=== PATIENT | male | born 1940 | race African-American/Black ===

== ENCOUNTER 2020-01-16 17:50 | Observation (INO) | payer MEDICARE, OTHER ==
[~2020-01-16] VITALS: Ht 177.8 cm; Wt 78.6 kg
[~2020-01-16 17:50] MED LIST: ASPIR-LOW81 MG ORAL; ATENOLOL25 MG ORAL; ATORVASTATIN CA20 MG ORAL; NORCO 5-325 TA1 EACH ORAL; NORVASC5 MG ORAL; OMEPRAZOLE20 M2 ORAL; PROSCAR5 MG ORAL; QVAR7.3 G2 IH; TAMSULOSIN HCL0.4 MG ORAL; UNOBMED
[2020-01-16 18:00] VITALS: BP 137/76
--- NOTE | 2020-01-16 18:00 | NUR ---
ED Nurse Note: Pt brought in by ambulance from home c/o left sided chest pain and upper abd pain. Per EMS, pt said when they arrived, pt reported no pain. Respirations even and unlabored on room air. Vitals stable as documented. A+Ox4, speaking in full sentences, calm and cooperative. Pt placed on montior
[2020-01-16] MEDS ORDERED: Aspirin Baby 81mg ORAL ONE (18:15)
--- NOTE | 2020-01-16 18:21 | NUR ---
ED Nurse Note: blood sent to lab
[2020-01-16 18:47] LABS: EOSINOPHILS % (AUTO) 2.6 % (0.0-3.0); HEMATOCRIT 36.6 % (42.0-52.0); HEMOGLOBIN 11.7 G/DL (14.2-18.0); LYMPHOCYTES % (AUTO) 26.9 % (20.0-45.0); MEAN CORPUSCULAR VOLUME 104 FL (80-99); MONOCYTES % (AUTO) 8.8 % (1.0-10.0); NEUTROPHILS % (AUTO) 60.7 % (45.0-75.0); PLATELET COUNT 222 K/UL (150-450); RED BLOOD COUNT 3.51 M/UL (4.70-6.10); RED CELL DISTRIBUTION WIDTH 12.4 % (11.6-14.8); WHITE BLOOD COUNT 7.4 K/UL (4.8-10.8)
--- NOTE | 2020-01-16 18:59 | NUR ---
HAND-OFF: Report given to GELA Walker. Pt in stable condition; plan of care endorsed.
[2020-01-16 19:00] VITALS: BP 137/64
[2020-01-16 19:00] LABS: ANION GAP 9 mmol/L (5-15); BLOOD UREA NITROGEN 22 mg/dL (7-18); CALCIUM 9.8 MG/DL (8.5-10.1); CARBON DIOXIDE 27 MMOL/L (21-32); CHLORIDE 104 MMOL/L (98-107); CREATININE 1.3 MG/DL (0.55-1.30); POTASSIUM 3.9 MMOL/L (3.5-5.1); SODIUM 140 MMOL/L (136-145)
--- NOTE | 2020-01-16 19:00 | NUR ---
ED Nurse Note: Report received from GELA Ferguson. Patient is aaox4, resting in bed with safety measures in place. Patient states he does not have chest pain at this time. Vital signs are stable; will continue to monitor.
[2020-01-16 19:04] LABS: ALANINE AMINOTRANSFERASE 16 U/L (12-78); ALBUMIN 3.7 G/DL (3.4-5.0); ALBUMIN/GLOBULIN RATIO 0.9 (1.0-2.7); ALKALINE PHOSPHATASE 78 U/L (46-116); ASPARTATE AMINO TRANSFERASE 13 U/L (15-37); BILIRUBIN,TOTAL 0.6 MG/DL (0.2-1.0)
--- NOTE | 2020-01-16 19:19 | NUR ---
emergency contact: Daughter Simran Contreras [phone]
--- NOTE | 2020-01-16 19:43 | Emergency Room Report ---
History of Present Illness General Chief Complaint: Chest Pain Source: Patient Present Illness HPI This patient states that for the past 24 hours he has had intermittent left- sided chest pain. He states that prior to this he had had right-sided chest pain intermittently but never left-sided chest pain. He denies recent illness. Denies cough or congestion. Denies fever chills. He denies nausea or vomiting. Denies headache or neck pain. He states that the pain comes and goes and is sharp. He does not associate the symptoms with exercise. Has no other complaints. Allergies: Coded Allergies: No Known Allergies (Unverified , 02/26/13) COVID-19 Screening Contact w/high risk pt: No Experienced COVID-19 symptoms?: No COVID-19 Testing performed HISTOLOGIST TECHNOLOGIST: No Patient History Past Medical History: see triage record, HTN, COPD, GERD, dementia, other - HLP , BPH Social History: Denies: smoking, alcohol use, drug use Reviewed Nursing Documentation: PMH: Agreed; PSxH: Agreed Nursing Documentation-PMH Past Medical History: No History, Except For Hx Cardiac Problems: Yes Hx Hypertension: Yes Hx COPD: Yes - emphysema Hx Cancer: No Hx Gastrointestinal Problems: Yes - gallstones Hx Neurological Problems: Yes Hx Tremors: Yes Hx Vertigo: Yes Hx Dizziness: Yes Hx Syncope: Yes Hx Headaches: Yes Hx Weakness: Yes Hx Fatigue: Yes Review of Systems All Other Systems: negative except mentioned in HPI Physical Exam Vital Signs Date Time Temp Pulse Resp B/P (MAP) Pulse Ox O2 Delivery O2 Flow Rate FiO2 01/16/20 17:51 98.1 63 18 133/68 (89) 99 Room Air Sp02 EP Interpretation: reviewed, normal General Appearance: no apparent distress, alert, GCS 15, non-toxic Head: normocephalic, atraumatic Eyes: bilateral eye normal inspection, bilateral eye PERRL ENT: hearing grossly normal, normal pharynx, no angioedema, normal voice Neck: full range of motion, supple/symm/no masses Respiratory: chest non-tender, lungs clear, normal breath sounds, no respiratory distress, no retraction, no accessory muscle use, speaking full sentences Cardiovascular #1: regular rate, rhythm, no edema Gastrointestinal: normal bowel sounds, non tender, soft, non-distended, no guarding, no rebound Rectal: deferred Musculoskeletal: back normal, normal range of motion, gait/station normal, non- tender Neurologic: alert, motor strength/tone normal, oriented x3, sensory intact, responsive, speech normal Psychiatric: judgement/insight normal, memory normal, mood/affect normal, no suicidal/homicidal ideation Skin: no rash, normal color Medical Decision Making Diagnostic Impression: Primary Impression: Chest pain ER Course This patient presents with chest pain. Initial work-up for the NC is negative. This includes troponin, EKG and chest x-ray. However, given the patient's age and medical history to include hyperlipidemia and hypertension in the setting of stuttering chest pain, the patient is high risk for unstable angina. The patient did remain chest pain-free here in the emergency department during his ED course. He was given aspirin orally. He is admitted for further evaluation and treatment by cardiology. This patient was evaluated in the context of the global COVID-19 pandemic, which necessitated consideration that the patient might be at risk for infection with the [id number] virus that causes COVID-19. Institutional protocols and algorithms that pertain to the evaluation of patients at risk for COVID-19 and the state of rapid change based on information released by multiple regulatory bodies including the CDC and federal and state organizations. These policies and algorithms were followed during the patient' s care in the ED. Laboratory Tests Test 01/16/20 18:15 White Blood Count 7.4 K/UL (4.8-10.8) Red Blood Count 3.51 M/UL (4.70-6.10) L Hemoglobin 11.7 G/DL (14.2-18.0) L Hematocrit 36.6 % (42.0-52.0) L Mean Corpuscular Volume 104 FL (80-99) H Mean Corpuscular Hemoglobin 33.3 PG (27.0-31.0) H Mean Corpuscular Hemoglobin Concent 32.0 G/DL (32.0-36.0) Red Cell Distribution Width 12.4 % (11.6-14.8) Platelet Count 222 K/UL (150-450) Mean Platelet Volume 6.8 FL (6.5-10.1) Neutrophils (%) (Auto) 60.7 % (45.0-75.0) Lymphocytes (%) (Auto) 26.9 % (20.0-45.0) Monocytes (%) (Auto) 8.8 % (1.0-10.0) Eosinophils (%) (Auto) 2.6 % (0.0-3.0) Basophils (%) (Auto) 1.0 % (0.0-2.0) Sodium Level 140 MMOL/L (136-145) Potassium Level 3.9 MMOL/L (3.5-5.1) Chloride Level 104 MMOL/L (98-107) Carbon Dioxide Level 27 MMOL/L (21-32) Anion Gap 9 mmol/L (5-15) Blood Urea Nitrogen 22 mg/dL (7-18) H Creatinine 1.3 MG/DL (0.55-1.30) Estimated Glomerular Filtration Rate > 60 mL/min (>60) Glucose Level 95 MG/DL (74-106) Calcium Level 9.8 MG/DL (8.5-10.1) Total Bilirubin 0.6 MG/DL (0.2-1.0) Aspartate Amino Transferase (AST) 13 U/L (15-37) L Alanine Aminotransferase (ALT) 16 U/L (12-78) Alkaline Phosphatase 78 U/L (46-116) Troponin I 0.006 ng/mL (0.000-0.056) Total Protein 7.6 G/DL (6.4-8.2) Albumin 3.7 G/DL (3.4-5.0) Globulin 3.9 g/dL Albumin/Globulin Ratio 0.9 (1.0-2.7) L EKG Diagnostic Results Rate: normal Rhythm: NSR ST Segments: no acute changes Rhythm Strip Diag. Results EP Interpretation: yes Rate: 60's Rhythm: NSR, no PVC's, no ectopy Chest X-Ray Diagnostic Results Chest X-Ray Diagnostic Results : Chest X-Ray Ordered: Yes # of Views/Limited/Complete: 1 View Indication: Chest Pain EP Interpretation: Yes Interpretation: no consolidation, no effusion, no pneumothorax, no acute cardiopulmonary disease Impression: No acute disease Electronically Signed by: Lani Hammonds DO Last Vital Signs Date Time Temp Pulse Resp B/P (MAP) Pulse Ox O2 Delivery O2 Flow Rate FiO2 01/16/20 19:00 98.2 60 16 137/64 100 Room Air Status: improved Disposition: ADMITTED INPATIENT Condition: Serious Referrals: NON PHYSICIAN (PCP) Lani Hammonds DO Jan 16, 2020 19:43
[2020-01-16] MEDS ORDERED: DONEPEZIL HCL5 M2 ORAL (20:00)
[2020-01-16] MEDS ORDERED: NAMENDA10 MG ORAL (20:00)
[2020-01-16] MEDS ORDERED: MYSOLINE50 M1 PO (20:00)
[2020-01-16] MEDS ORDERED: METOPROLOL SUCC25 MG ORAL (20:00)
[2020-01-16] MEDS ORDERED: CATAPRES0.1 MG ORAL (20:00)
--- NOTE | 2020-01-16 20:30 | NUR ---
ED Nurse Note: Patient ambulated to restroom with steady gait and minimal assistance. Patient is awake and alert, has no complaints at this time. Patient is breathing normal and unlabored. Will continue to monitor.
--- NOTE | 2020-01-16 21:40 | NUR ---
ED Nurse Note: Report given to GELA Rousseau.
[2020-01-16 21:50] VITALS: BP 141/69
[2020-01-16] MEDS ORDERED: Nitroglycerin Subl 0.4mg tab SL PRN (22:00)
--- NOTE | 2020-01-16 22:00 | NUR ---
ED Nurse Note: Patient is stable for transfer to tele unit at this time per ERMD. Patient is awake and alert, no respiratory distress noted. Patients vital signs are stable. Pt denies any chest pain currently. Pt taken to unit by RN, connected to cured meats supervisor via gurney. Pt IV is patent and intact and he took all belongings with him. Transferred to tele bed without complication.
--- NOTE | 2020-01-16 23:00 | NUR ---
NURSE NOTES: Patient received from Denise REN. Transported via gurney and patient was able to ambulate to bed. Vital signs stable Temp 98.2, BP, 137/64, RR 16, HR 65, O2 Sat @ 100% on RA. Patient in stable condition. laboratory monitor in place. IV site on Right AC 18G. No s/s of distress and no c/o chest pain. Bed is low and locked. [place] given to patient per request. Bed low and locked. Bedside table and call light within reach. MD called for orders answered and carried out. Will continue plan of care.
[2020-01-17] VITALS: BP 137/64
[2020-01-17] MEDS ORDERED: Lexiscan 0.4mg/5ml syringe IV ONE (02:30)
[2020-01-17 03:09] LABS: BASOPHILS % (AUTO) 1.6 % (0.0-2.0); EOSINOPHILS % (AUTO) 2.6 % (0.0-3.0); HEMATOCRIT 33.4 % (42.0-52.0); HEMOGLOBIN 11.2 G/DL (14.2-18.0); LYMPHOCYTES % (AUTO) 31.6 % (20.0-45.0); MEAN CORPUSCULAR VOLUME 101 FL (80-99); MONOCYTES % (AUTO) 6.6 % (1.0-10.0); NEUTROPHILS % (AUTO) 57.7 % (45.0-75.0); PLATELET COUNT 199 K/UL (150-450); RED BLOOD COUNT 3.33 M/UL (4.70-6.10); RED CELL DISTRIBUTION WIDTH 11.3 % (11.6-14.8); WHITE BLOOD COUNT 6.4 K/UL (4.8-10.8)
[2020-01-17 03:30] LABS: ANION GAP 8 mmol/L (5-15); BLOOD UREA NITROGEN 19 mg/dL (7-18); CALCIUM 9.4 MG/DL (8.5-10.1); CARBON DIOXIDE 28 MMOL/L (21-32); CHLORIDE 106 MMOL/L (98-107); CREATININE 1.1 MG/DL (0.55-1.30); PHOSPHORUS 2.9 MG/DL (2.5-4.9); POTASSIUM 3.7 MMOL/L (3.5-5.1); SODIUM 142 MMOL/L (136-145)
[2020-01-17 03:31] LABS: CHOLESTEROL 104 MG/DL (< 200); HDL CHOLESTEROL 32 MG/DL (40-60); TRIGLYCERIDES 79 MG/DL (30-150)
[2020-01-17 04:00] VITALS: BP 126/55
--- NOTE | 2020-01-17 07:31 | NUR ---
NURSE HAND-OFF REPORT: Important Events on Shift:[Admission] Patient Status: [Stab;e] Diet: [NPO] Pending Orders: [] Pending Results/Labs:[] Pending MD notification:[] Latest Vital Signs: Temperature 96.3 , Pulse 53 , B/P 126 /55 , Respiratory Rate 18 , O2 SAT 97 , Room Air, O2 Flow Rate . Vital Sign Comment: [] EKG Rhythm: Sinus Bradycardia Rhythm change?: N MD Notified?: N - MD Response: Latest Christian Fall Score: 35 Fall Risk: Medium Risk Safety Measures: Call light Within Reach, Bed Alarm Zone 1, Side Rails Side Rails x3, Bed position Low and Locked. Fall Precautions: Yellow Socks Yellow Gown Door Sign Patient Fall Education Report given to [Dariana REN].
[2020-01-17 08:00] VITALS: BP 147/72
--- NOTE | 2020-01-17 08:31 | NUR ---
NURSE NOTES: Received report from GELA Rousseau. Pt awake, A/O x4, able to make needs known, denies any pain. Breathing even and unlabored in RA, no s/sx of acute distress. IV site on R AC patent and asymptomatic. Bed on lowest position, call light within reach. Will continue plan of care.
[2020-01-17] MEDS ORDERED: Memantine 10mg tab ORAL SCH (09:00)
[2020-01-17] MEDS ORDERED: Aspirin Baby 81mg ORAL SCH (09:00)
[2020-01-17] MEDS: Metoprolol Succinate XL 25mg tab ORAL SCH ×2 (09:00→09:26)
[2020-01-17] MEDS ORDERED: Donepezil 5mg Tab ORAL SCH (09:00)
[2020-01-17 12:00] VITALS: BP 134/61
--- NOTE | 2020-01-17 12:14 | Diagnostic Imaging Report ---
Indications: Chest pain Technique: IV administration 5.4 mCi 99m technetium macroaggregated albumin. Images obtained over the lungs in multiple projections. Previous, patient inhaled 41 mCi aerosolized 99M technetium DTPA. Images obtained over the lungs in multiple projections Comparison: Chest radiograph 01/16/2020 Findings: Perfusion tracer distribution is slightly heterogeneous, but there are no segmental or subsegmental perfusion defects. No evidence of perfusion aerosol mismatch. Impression: Findings are deemed low probability for pulmonary embolus
--- NOTE | 2020-01-17 12:21 | Cardiology Progress Note ---
Subjective No Cp since before he got to ER. CP was sharp and transient. Troponins negative x3. 2D Echo reveals normal LVEF with no pulmonary hypertension or significant valve pathology. Monitor: sinus with short episodes of sinus bradycardia in 50's Objective Last 24 Hour Vital Signs Date Time Temp Pulse Resp B/P (MAP) Pulse Ox O2 Delivery O2 Flow Rate FiO2 01/17/20 09:26 147/72 01/17/20 09:00 Room Air 01/17/20 09:00 59 147/72 01/17/20 09:00 59 147/72 01/17/20 08:00 97.5 59 20 147/72 (97) 98 01/17/20 07:29 55 01/17/20 04:00 96.3 53 18 126/55 (78) 97 01/17/20 04:00 54 01/17/20 00:00 65 01/17/20 00:00 98.2 65 18 137/64 (88) 100 01/16/20 22:38 Room Air 01/16/20 22:32 Room Air 01/16/20 21:50 98.2 57 17 141/69 100 Room Air 01/16/20 21:30 98.6 61 17 139/71 100 Room Air 01/16/20 19:00 98.2 60 16 137/64 100 Room Air 01/16/20 18:00 68 18 Room Air 01/16/20 18:00 98.3 70 18 137/76 100 Room Air 01/16/20 17:51 98.1 63 18 133/68 (89) 99 Room Air RHYTHM: NSR, SB LUNGS: lungs clear bilaterally, diminished breath sounds CARDIAC: normal rate, regular rhythm, normal S1 and S2, bradycardia ABDOMEN: normal bowel sounds, non tender, soft EXTREMITIES: normal range of motion, No edema Laboratory Tests Test 01/16/20 18:15 01/17/20 03:02 01/17/20 09:15 White Blood Count 7.4 K/UL (4.8-10.8) 6.4 K/UL (4.8-10.8) Red Blood Count 3.51 M/UL (4.70-6.10) L 3.33 M/UL (4.70-6.10) L Hemoglobin 11.7 G/DL (14.2-18.0) L 11.2 G/DL (14.2-18.0) L Hematocrit 36.6 % (42.0-52.0) L 33.4 % (42.0-52.0) L Mean Corpuscular Volume 104 FL (80-99) H 101 FL (80-99) H Mean Corpuscular Hemoglobin 33.3 PG (27.0-31.0) H 33.6 PG (27.0-31.0) H Mean Corpuscular Hemoglobin Concent 32.0 G/DL (32.0-36.0) 33.5 G/DL (32.0-36.0) Red Cell Distribution Width 12.4 % (11.6-14.8) 11.3 % (11.6-14.8) L Platelet Count 222 K/UL (150-450) 199 K/UL (150-450) Mean Platelet Volume 6.8 FL (6.5-10.1) 6.0 FL (6.5-10.1) L Neutrophils (%) (Auto) 60.7 % (45.0-75.0) 57.7 % (45.0-75.0) Lymphocytes (%) (Auto) 26.9 % (20.0-45.0) 31.6 % (20.0-45.0) Monocytes (%) (Auto) 8.8 % (1.0-10.0) 6.6 % (1.0-10.0) Eosinophils (%) (Auto) 2.6 % (0.0-3.0) 2.6 % (0.0-3.0) Basophils (%) (Auto) 1.0 % (0.0-2.0) 1.6 % (0.0-2.0) Sodium Level 140 MMOL/L (136-145) 142 MMOL/L (136-145) Potassium Level 3.9 MMOL/L (3.5-5.1) 3.7 MMOL/L (3.5-5.1) Chloride Level 104 MMOL/L (98-107) 106 MMOL/L (98-107) Carbon Dioxide Level 27 MMOL/L (21-32) 28 MMOL/L (21-32) Anion Gap 9 mmol/L (5-15) 8 mmol/L (5-15) Blood Urea Nitrogen 22 mg/dL (7-18) H 19 mg/dL (7-18) H Creatinine 1.3 MG/DL (0.55-1.30) 1.1 MG/DL (0.55-1.30) Estimat Glomerular Filtration Rate > 60 mL/min (>60) > 60 mL/min (>60) Glucose Level 95 MG/DL (74-106) 139 MG/DL (74-106) H Calcium Level 9.8 MG/DL (8.5-10.1) 9.4 MG/DL (8.5-10.1) Total Bilirubin 0.6 MG/DL (0.2-1.0) Aspartate Amino Transf (AST/SGOT) 13 U/L (15-37) L Alanine Aminotransferase (ALT/SGPT) 16 U/L (12-78) Alkaline Phosphatase 78 U/L (46-116) Troponin I 0.006 ng/mL (0.000-0.056) 0.000 ng/mL (0.000-0.056) 0.000 ng/mL (0.000-0.056) Total Protein 7.6 G/DL (6.4-8.2) Albumin 3.7 G/DL (3.4-5.0) Globulin 3.9 g/dL Albumin/Globulin Ratio 0.9 (1.0-2.7) L Phosphorus Level 2.9 MG/DL (2.5-4.9) Magnesium Level 2.0 MG/DL (1.8-2.4) Triglycerides Level 79 MG/DL (30-150) Cholesterol Level 104 MG/DL (< 200) LDL Cholesterol 64 mg/dL (<100) HDL Cholesterol 32 MG/DL (40-60) L Cholesterol/HDL Ratio 3.3 (3.3-4.4) Microbiology Date/Time Source Procedure Growth Status 01/16/20 21:20 Nasopharynx SARS-CoV-2 RdRp Gene Assay - Final Complete Assessment/Plan Assessment/Plan Non cardiac chest pain, likely musculoskeletal. COPD Hypertension No pulmonary hypertension Transient sinus bradycardia of no clinical significance, likely due to meds ( metoprolol and clonidine) Meds reviewed - metoprolol discont'd. No additional cardiac work up presently planned Outpatient follow up Dat Huddleston MD Jan 17, 2020 12:21
--- NOTE | 2020-01-17 12:41 | NUR ---
CASE MANAGEMENT: INITIAL REVIEW 79 YO M BIBA FROM HOME CC: CP past 24 hours he has had intermittent left-sided chest pain PMHx: HTN SI:CP R/O ACS T 98.1 HR 63 RR 18 B/P 133/68 SATS 99% ON RA LABS: BUN 22 AST 13 IS: ASA PO X1 EKG Diagnostic Results Rate: normal Rhythm: NSR ST Segments: no acute changes CXR Impression: No acute disease PATIENT ADMITTED TO TELE 01/16/2020 @ 2042 DCP: HOME CONCURRENT REVIEW FOR 01/17/2020 SI:CP R/O ACS VS: T 98.2 HR 59 RR 18 B/P 134/61 SATS 96% ON RA LABS: BUN 19 TROPONIN (-) X3 IS;LIPITOR PO QHS ASA PO QD NORVASC PO QD NAMENDA PO QD 2D Echo reveals normal LVEF with no pulmonary hypertension or significant valve pathology. NM VQ Scan w/ Lung Perfusion Impression: Findings are deemed low probability for pulmonary embolus TELE DCP: HOME PLAN OF CARE: PER CARDIO >> No additional cardiac work up presently planned
--- NOTE | 2020-01-17 12:53 | NUR ---
INSURANCE PER B/AR INFO... CALL REF#[id number] CALLED [facility] CERT [phone] SPOKE TO: [facility] FAXED TO [facility] TO [phone]
--- NOTE | 2020-01-17 13:44 | Diagnostic Imaging Report ---
Indication: Chest pain Technique: One view of the chest Comparison: 02/26/2013 Findings: The heart is borderline enlarged. The lungs and pleural spaces are clear. Impression: No acute process
[2020-01-17 16:00] VITALS: BP 127/63
--- NOTE | 2020-01-17 17:04 | NUR ---
NURSE NOTES: Pt left the unit in stable condition, picked up by a family member (sister, next of kin). Explained DC instructions to patient and NOK, verbalized understanding. Tele monitor, ID band, and IV removed, no bleeding noted. Belongings checked. Mask provided upon DC. Pt signed the Release of Information form, per request of pt's daughter to get all info/results while pt is admitted to the hospital. Paperwork dropped off to release of information office.
[2020-01-17] MEDS ORDERED: Atorvastatin 80mg tab ORAL SCH (21:00)
[2020-01-17] MEDS ORDERED: Tamsulosin 0.4mg cap ORAL SCH (21:00)
--- NOTE | 2020-01-17 22:30 | History and Physical Report ---
DATE OF ADMISSION: 01/16/2020 This is an 79-year-old male who came to the hospital with left-sided chest pain. He has had right-sided chest pain before he came to the hospital and was worked up. He underwent complete workup including echo and V/Q scan and overnight these tests have been resulted and are currently normal. The patient has been seen by Cardiology. His pain has resolved. He has had serial troponins that are negative and currently he states he is feeling well. PAST HISTORY: COPD, cholelithiasis, history of tremors and vertigo, history of headaches and generalized weakness. He has dementia mild, hyperlipidemia, and BPH. LIST OF HOME MEDICATIONS: Reviewed, reconciled in chart. REVIEW OF SYSTEMS: Denies any headaches, melena, or hematemesis. PHYSICAL EXAMINATION: GENERAL: An 79-year-old male. HEENT: Unremarkable. LUNGS: Clear breath sounds bilaterally. ABDOMEN: Soft. unremarkable. VITAL SIGNS: Blood pressure is 130/60, heart rate 84, respirations 18, . IMPRESSION: 1. Atypical chest pain, now resolved. 2. Negative V/Q scan. 3. Seen here by Cardiology. 4. COPD. DISCUSSION: At this time, the patient is doing well. He has been observed overnight. At this time, I will discharge him and have him follow up as an outpatient with his primary care physician. Preet Dominguez M.D. DR: HUA JOB#: [id number] CC:
--- NOTE | 2020-01-18 02:45 | Consultation ---
DATE OF CONSULTATION: 01/16/2020 CARDIOLOGY CONSULTATION CONSULTING PHYSICIAN: Dat Huddleston MD. REFERRING PHYSICIAN: Preet Dominguez MD. REASON FOR CONSULTATION: Chest pain. HISTORY OF PRESENT ILLNESS: This 79-year-old male presented to the emergency room with left-sided chest pain. He has also had right-sided chest pain. He has not had symptoms previously of this severity. His pain did resolve prior to him arriving to the emergency room however. His initial emergency room workup was notable for EKG revealing sinus rhythm with nonspecific ST changes and a troponin level that was negative. PAST MEDICAL HISTORY: Includes hypertension, COPD, cholelithiasis, migraine disorder, gastroesophageal reflux disease, cerebrovascular disease with dementia, hyperlipidemia, prostatic hypertrophy. ALLERGIES: None. MEDICATIONS: Reviewed and reconciled. SOCIAL HISTORY: Prior smoker. No alcohol or substance abuse. REVIEW OF SYSTEMS: A 10-point review of systems performed, all negative other than outlined above. PHYSICAL EXAMINATION: VITAL SIGNS: Blood pressure 133/68, heart rate 63, respirations 18, afebrile. LUNGS: Clear. Jugular venous pressure normal. CARDIAC: Regular rhythm and rate. Normal S1, S2 with a fourth heart sound. ABDOMEN: Soft. EXTREMITIES: No edema. LABORATORY DATA: White count 7.4, hemoglobin 11.7. Sodium 140, potassium 3.9, bicarb 27, BUN 22, creatinine 1.3. Troponin negative. IMPRESSION: 1. Possible acute coronary syndrome. Other considerations would include musculoskeletal pain, or pleural pericarditic discomfort. No clinical signs of congestive heart failure. 2. Hypertension, well controlled. 3. Stable cardiac rhythm. RECOMMENDATIONS: 1. Cardiac monitoring. 2. Serial troponins. 3. Maintain anti-platelet and antianginal regimen. 4. V/Q scan. 5. Further consideration for myocardial perfusion scan to follow depending on clinical course. We would avoid Lexiscan in the view of his underlying obstructive lung disease. Dat Huddleston M.D. DR: KHANG JOB#: [id number] CC:
== END 2020-01-17 17:08 | disposition home or self-care (01) ==
LOC: EDBD 17:50 → EMR 18:05 → INTOOBSV 20:43 → 2E 20:43 → EDBEDREQ 21:07
DX: R07.89 Other chest pain (principal); I10 Essential (primary) hypertension; J44.9 Chronic obstructive pulmonary disease, unspecified; K21.9 Gastro-esophageal reflux disease without esophagitis; F03.90 Unspecified dementia, unspecified severity, without behavioral disturbance, psychotic disturbance, mood disturbance, and anxiety; E78.5 Hyperlipidemia, unspecified; R00.1 Bradycardia, unspecified; Z87.891 Personal history of nicotine dependence; N40.0 Benign prostatic hyperplasia without lower urinary tract symptoms
CPT/HCPCS: 36415 ×2; 71045; 78579; 78580; 80048; 80053; 80061; 83735; 84100; 84484 ×2; 85025 ×2; 93005 ×2; 93306; 99285; A4641; A9503; G0378 ×2; U0002